=== PATIENT | male | born 2000 | race Two or more races ===

== ENCOUNTER 2021-01-04 13:58 | Emergency (ER) | payer MEDICAID, OTHER ==
[~2021-01-04] VITALS: Ht 182.9 cm; Wt 64.9 kg
[2021-01-04 15:13] VITALS: BP 112/65
[2021-01-04] MEDS ORDERED: IBUPROFEN 800 MG TAB PO ONE (15:30)
== END 2021-01-04 16:41 | disposition home or self-care (01) ==
LOC: ER 13:58
DX: M25.511 Pain in right shoulder (principal); R51.9 Headache, unspecified; R42 Dizziness and giddiness; F17.210 Nicotine dependence, cigarettes, uncomplicated; W11.XXXA Fall on and from ladder, initial encounter; Y93.89 Activity, other specified; Y92.89 Other specified places as the place of occurrence of the external cause; Y99.8 Other external cause status
CPT/HCPCS: 73010; 73060